=== PATIENT | female | born 1980 | race Caucasian/White ===

== ENCOUNTER → 2019-02-28 | Outpatient (CLI) | payer OTHER ==
[~2019-02-28] MED LIST: IOHEXOL 240 MG/ML 50ML VIAL. ONE; IOHEXOL 300 MG/ML 75 ML VIAL. IV ONE
--- NOTE | 2019-02-28 12:35 | RAD ---
CT ABD PELV W/ORAL IV CONTRAST Indication: Abdominal pain, nausea, shunt Technique: Postcontrast CT imaging was performed of the abdomen pelvis, multiplanar reconstruction images submitted. Oral contrast was also given. One or more of the following individualized dose reduction techniques were utilized for this examination: 1. Automated exposure control 2. Adjustment of the mA and/or kV according to patient size 3. Use of iterative reconstruction technique. Comparison: None Findings: There is mild atelectasis of the limited visualized lung bases. No focal abnormality is identified of the liver, spleen, pancreas. There has been cholecystectomy. There is no adrenal nodularity. Both kidneys enhance, no hydronephrosis. Left kidney is smaller than the right. There is a hypodense lesion of the superior left kidney about 1.4 cm in size, density measurements of a cyst. Bowel is not significantly dilated. Normal caliber appendix is visualized. There is no free fluid or free air. There is likely small right adnexal cyst about 1.5 cm. There is shunt coursing into the abdomen with tip terminating in the anterior right pelvis, no fluid collection near tip. No significant localized inflammatory type change is identified about the bowel. There is retained stool in segments of colon. IMPRESSION: 1. There is no localized inflammatory type change, no CT evidence of acute appendicitis. There is retained stool in segments of the colon. 2. There is small likely cyst of the right adnexa. 3. There is shunt, no fluid collection adjacent to the tip terminating in the anterior right pelvis. Electronically signed by: Alejandro Talamantes MD (02/28/2019 12:31 PM) [id number]
== END | disposition home or self-care (01) ==
LOC: CT 10:49
PROVIDERS: ATTEND Nurse Practitioner Family
DX: K52.89 Other specified noninfective gastroenteritis and colitis (principal); N28.89 Other specified disorders of kidney and ureter; J98.11 Atelectasis; Z90.49 Acquired absence of other specified parts of digestive tract
CPT/HCPCS: 74177; Q9967

== ENCOUNTER 2020-11-10 21:36 | Emergency (ER) | payer BC, OTHER ==
[~2020-11-10] VITALS: Ht 160 cm; Wt 98.4 kg
[2020-11-10 21:40] VITALS: BP 126/82
[2020-11-10] MEDS ORDERED: HYDROcodone/APAP 5/325MG 1 TAB TABLET PO ONE (22:15)
--- NOTE | 2020-11-10 22:18 | PHYS DOC ---
Past History Past Medical History: No Pertinent History Past Surgical History: Cholecystectomy, Hysterectomy Additional Past Surgical Histo: BAND [employer]ER shunt Alcohol Use: None Adult General Chief Complaint Chief Complaint: POST-OP PROBLEM HPI HPI Patient is a 40-year-old female who complains of postoperative pain. Reports having laparoscopic hysterectomy approximately 3 weeks ago not emergently. States she has had generalized lower abdominal pain ever since. She took her prescribed pain medications but ran out of these quickly, she has not been taking anything else for the pain ever since. She called her [facility]ATH[facility] COVERER approximately 2 weeks ago to discuss pain and was subsequently prescribed amoxicillin, patient did not have an in person or telehealth visit for this so she is unsure why she was taking amoxicillin, she finishes this tomorrow. S adolfo she called [facility] again yesterday to discuss ongoing pain and was advised to come to the ER, she did not. She woke up today and reports being less physically active while at home which she states helped her pain quite a bit but when moving around pain returned prompting her to call [facility], she was again referred to come to our ER for evaluation and pain management. Patient otherwise denies any falls, syncope, fever, other systemic symptoms such as chills or diaphoresis, no chest pain or shortness of breath, no cough, no nausea, no changes in bladder or bowel function, no urinary symptoms. States she has had intermittent vaginal bleeding which has decreased in frequency and quantity since her initial surgery, no other discharge reported Review of Systems Review of Systems Fourteen body systems of review of systems have been reviewed. See HPI for pertinent positives and negative responses, other omalley all other systems are negative, non-pertinent or non-contributory Allergies Allergies Allergies Coded Allergies Type Severity Reaction Last Updated Verified No Known Drug Allergies 02/28/19 No Physical Exam Physical Exam Constitutional: Well developed, well nourished, no acute distress, non-toxic appearance. Anxious HENT: Normocephalic, atraumatic, bilateral external ears normal, oropharynx moist, no oral exudates, nose normal. Eyes: PERRLA, EOMI, conjunctiva normal, no discharge. Neck: Normal range of motion, no tenderness, supple, no stridor. Cardiovascular: Heart rate regular, sinus rhythm, no murmurs rubs or gallops Lungs & Thorax: Bilateral breath sounds clear to auscultation Abdomen: Bowel sounds normal, soft, no tenderness, no guarding or rebound, no masses, no pulsatile masses. Nonsurgical abdomen, no peritoneal signs. Well- appearing and healthy laparoscopic incisions status post recent hysterectomy procedure Skin: Warm, dry, no erythema, no rash. Back: No tenderness, no CVA tenderness. Extremities: No tenderness, no cyanosis, no clubbing, ROM intact, no edema. Neurologic: Alert and oriented X 3, grossly normal motor & sensory function, no focal deficits noted. Psychologic: Tearful affect, judgement normal, depressed mood Current Patient Data Vital Signs Vital Signs Date Time Temp Pulse Resp B/P (MAP) Pulse Ox O2 Delivery O2 Flow Rate FiO2 11/10/20 21:40 98.6 95 16 126/82 (97) 97 Room Air EKG EKG [] Radiology/Procedures Radiology/Procedures [] Heart Score HEART Score for Chest Pain: HEART Score for Chest Pain Response (Comments) Value History Slighlty/Non-Suspicious 0 Age < 45 0 Risk Factors 1 or 2 Risk Factors 1 Total 1 Risk Factors: Risk Factors: DM, Current or recent (<one month) smoker, HTN, HLP, family history of CAD, obesity. Risk Scores: Risk Factors: DM, Current or recent (<one month) smoker, HTN, HLP, family history of CAD, obesity. Course & Med Decision Making Course & Med Decision Making I discussed most likely diagnosis of postoperative pain status post hysterectomy 3 weeks ago. Patient's vitals unremarkable, no concerning signs on physical examination, I discussed little utility in further diagnostic work-up in emergency room setting. I did offer patient CT imaging of her abdomen despite no concerning symptoms or physical exam findings, she deferred. I also offered patient pelvic exam but she deferred stating she would rather her LEATHER COVERER do it. Patient given x1 Shepherd 5 while in ER and advised to continue supportive care practices with daily Tylenol scheduled for pain and close outpatient follow-up with [facility] who performed her hysterectomy for repeat evaluation. Strict return precautions were also discussed at length with good understanding by patient. Patient voiced understanding and agreement with the plan. Patient knows to come back for repeat evaluation if concerning signs or symptoms present prior to outpatient follow-up. Hemodynamically stable, ambulatory and well-appearing at time of disposition. Dragon Disclaimer Dragon Disclaimer This electronic medical record was generated, in whole or in part, using a voice recognition dictation system. Departure Departure: Impression: Primary Impression: Postoperative lower abdominal pain Disposition: 01 DC HOME SELF CARE/HOMELESS Condition: STABLE Referrals: BHUMIKA MARION (PCP) Patient Instructions: Hysterectomy, Care After Additional Instructions: You were seen for postoperative pain status post hysterectomy. As discussed at length, I see little utility in laboratory analysis today. Radiographs are low yield. I did offer CT imaging of your abdomen but given physical exam findings and the fact that your vitals were unremarkable, you did not have an acute ab domen, joint decision was made to defer this. You have not been taking anything for pain on a daily basis, you are healthy and can take Tylenol daily. You need to be seen in person by her LEATHER COVERER who did your surgery for repeat evaluation. You need to return to the ED immediately if you develop worsening pain, heavy vaginal bleeding, chest pain, shortness of breath, excessive fat igue, lightheadedness, or any other new or concerning symptoms. It was a pleasure to take care of you and I wish you the best going forward MARILYN PATIÑO DO Nov 10, 2020 22:18
== END 2020-11-10 22:27 | disposition home or self-care (01) ==
LOC: ER 21:36
DX: G89.18 Other acute postprocedural pain (principal); R10.84 Generalized abdominal pain; Z90.49 Acquired absence of other specified parts of digestive tract; Z90.710 Acquired absence of both cervix and uterus
CPT/HCPCS: 99283